=== PATIENT | female | born 1965 | race Caucasian/White ===

== ENCOUNTER 2018-05-22 09:32 | Emergency (ER) | payer OTHER ==
--- NOTE | 2018-05-22 09:38 | UC ---
Respiratory Complaint HPI - HPI Summary HPI Summary: Patient is 53 year old woman, who present today to the urgent care with for sinus congestion for past 10 days. She reports that she had upper respiratory illness like symptoms for the past 10 days or so and now has got worse over the past 2 days. She does report history of sinus infections in the past. She also reports some sore throat and dry cough. Headache is mainly frontal along with some occipital headache , she feels it's like a pressure in her whole head which gets worse with movement. Denies any fever, chills, chest pain or shortness of breath . Denies any abdominal pain , nausea or vomiting , diarrhea or constipation. - History of Current Complaint Chief Complaint: UCRespiratory Stated Complaint: SINUS PAIN Time Seen by Provider: 05/22/18 09:35 Hx Obtained From: Patient Hx Last Menstrual Period: july - Allergies/Home Medications Allergies/Adverse Reactions: Allergies Allergy/AdvReac Type Severity Reaction Status Date / Time No Known Allergies Allergy Verified 05/22/18 09:40 Home Medications: Home Medications Ibuprofen 600 mg PO 05/22/18 [History] Mometasone Furoate [Nasonex] 17 gm NS 05/22/18 [History] PMH/Surg Hx/FS Hx/Imm Hx - Additional Past Medical History Additional PMH: Allergic rhinitis for which she takes allergy shots and Nasonex as needed Previously Healthy: Yes - Surgical History Surgical History: Yes Surgery Procedure, Year, and Place: x2 - Social History Alcohol Use: Occasionally Substance Use Type: None Review of Systems All Other Systems Reviewed And Are Negative: Yes Constitutional: Positive: Negative Skin: Positive: Negative Eyes: Positive: Negative ENT: Positive: Sore Throat, Sinus Congestion, Sinus Pain/Tenderness Respiratory: Positive: Cough - Dry nonproductive cough Cardiovascular: Positive: Negative Gastrointestinal: Positive: Negative Genitourinary: Positive: Negative Motor: Positive: Negative Neurovascular: Positive: Negative Musculoskeletal: Positive: Negative Neurological: Positive: Headache Psychological: Positive: Negative Is Patient Immunocompromised?: No Physical Exam - Summary Physical Exam Summary: Physical Exam: Const: Appears well. No signs of apparent distress present. Alert and oriented x 3. Musculo: Walks with a normal gait. Head/Face: Atraumatic, normocephalic on inspection. Eyes: EOMI and PERRLA in both eyes. Conjunctivae clear. No discharge noted ENT: Hearing normal, TM normal appearing bilaterally . Mild pharyngeal erythema but no exudates Mild anterior tender lymphadenopathy There is tenderness to palpation on the frontal/ethmoid and maxillary sinuses bilaterally with mild superficial erythema in the maxillary area Respiratory: Respirations are unlabored. Lungs clear to auscultation bilaterally, no wheezing , rhonchi or rales noted . CVS: Regular rate and Rhythm, S1S2 normal , no murmurs identified. Extremities: Peripheral circulation is grossly normal. Pulses 2+ Abdomen : Soft non tender , nondistended , Bowel sounds present . No guarding , rebound tenderness or rigidity noted. Skin: No lesions or rash located on the upper extremities or on the lower extremities. Neuro: Cranial nerves II to XII intact, motor and sensory intact. DTR Intact bilaterally. Mood is normal. Affect is normal. Triage Information Reviewed: Yes Vital Signs Reviewed: Yes Respiratory Course/Dx - Course Course Of Treatment: During the visit today, we discussed the findings and further plan. I will prescribe the medication to the pharmacy . We discussed that she should also follow up with ENT if her symptoms become recurrent or does not improve with treatment. Referral was put in. Patient expressed understanding . - Differential Dx/Diagnosis Provider Diagnosis: Sinusitis Discharge - Sign-Out/Discharge Documenting (check all that apply): Patient Departure All imaging exams completed and their final reports reviewed: No Studies - Discharge Plan Condition: Stable Disposition: HOME Prescriptions: Amoxicillin/Clavulanate TAB* [Augmentin TAB 875*] 875 mg PO BID 14 Days #28 tab Patient Education Materials: Sinusitis (ED) Referrals: Jose Torres MD [Medical Doctor] - 1 Week Jose Rodríguez MD [Primary Care Provider] - 1 Week Additional Instructions: Please start taking the medication as prescribed to the pharmacy . Follow up with your primary care doctor in 1 week Please follow up with ENT surgeon in 1-2 weeks if she has continued symptoms for further evaluation Return to Urgent care / ER if symptoms get worse. - Billing Disposition and Condition Condition: STABLE Disposition: Home
[2018-05-22 09:41] VITALS: BP 133/34
== END 2018-05-22 10:10 | disposition home or self-care (01) ==
LOC: UCEAST 09:32
DX: J32.9 Chronic sinusitis, unspecified (principal)
CPT/HCPCS: 99212; G0463